=== PATIENT | female | born 1995 | race American Indian/Alaskan Native ===

== ENCOUNTER 2016-07-12 00:39 | Emergency (ER) | payer OTHER ==
[2016-07-12 02:12] LABS: Basophils % (Auto) 0.3 % (0.0-1.8); Hematocrit 39.6 % (30.3-42.9); Hemoglobin 13.1 gm/dl (10.1-14.3); Mean Corpuscular HGB Conc 33 % (30-34); Mean Corpuscular Hemoglobin 29 pg (28-32); Mean Corpuscular Volume 88 fl (79-97); Platelet Count 279 K/mm3 (140-440); Red Blood Count 4.48 M/mm3 (3.65-5.03); White Blood Count 16.5 K/mm3 (4.5-11.0)
[2016-07-12 04:42] VITALS: BP 104/50
--- NOTE | 2016-07-17 07:15 | ED Elopement Review ---
ED Pt Elopement review - Results review Lab results: Laboratory Tests 07/12/16 07/12/16 01:30 01:30 WBC 16.5 H RBC 4.48 Hgb 13.1 Hct 39.6 MCV 88 MCH 29 MCHC 33 RDW 13.0 L Plt Count 279 Lymph % (Auto) 10.2 L Hardin % (Auto) 6.0 Eos % (Auto) 0.0 Baso % (Auto) 0.3 Lymph # 1.7 Hardin # 1.0 H Eos # 0.0 Baso # 0.1 Seg Neutrophils % 83.5 H Seg Neutrophils # 13.8 H HCG, Qual Negative - Call Back decision Pt Call Back Decision: No action required
== END 2016-07-12 07:57 | disposition left against medical advice (07) ==
LOC: ED 00:39
DX: N93.9 Abnormal uterine and vaginal bleeding, unspecified (principal); Z53.21 Procedure and treatment not carried out due to patient leaving prior to being seen by health care provider
CPT/HCPCS: 36415; 84703; 85025